=== PATIENT | male | born 1980 | race Caucasian/White ===

== ENCOUNTER 2018-12-18 15:35 | Emergency (ER) | payer MEDICAID, SELFPAY ==
[2018-12-18 15:36] VITALS: BP 132/86; PULSE 66; RESP 20; TEMP 36.4; O2SAT 98; BMI 25.7
[2018-12-18] MEDS: HYDROcodone Bitartrate/Apap 5/325 Tablet PO (16:10)
[2018-12-18] MEDS: Ondansetron ODT 4 MG Tablet PO (16:11)
[2018-12-18] MEDS: morphine 10 MG/ML Syringe IM (16:11)
--- NOTE | 2018-12-18 16:11 | ED.DCSUM_ITS ---
History of Present Illness Chief Complaint: Lower Extremity Injury Informant: Patient Occurred: Today Mechanism/Context: Injury, Puncture Wound Onset: Today Context: Sudden Onset Timing: Continuous Quality of Pain: Sharp Location: Right foot Current Severity: Severe Maximum Severity: Severe Worsened by: Movement and palpation Relieved by: Nothing Associated Symptoms: Negative for: Parasthesia, Weakness, Loss of Funtion Narrative: 38-year-old male presents with injury to his right foot. Patient dropped a log splitter on his right foot. He was wearing a boot. He denies any other injuries. He is not on blood thinners. He is not a diabetic. His last tetanus was 4 years ago. He has a history of multiple broken toes in this foot about 6 months ago. No surgery was performed at that time. Tetanus Immunization: <5 years Prior similar symptoms: No Recent Illness/Hospitalization: No Past Medical History - Allergies and Home Meds Allergies/Adverse Reactions: Allergies amoxicillin Allergy (Verified 12/18/18 15:36) Hives Penicillins [PCN] Allergy (Verified 12/18/18 15:36) Hives Primary Care Physician: Gary Rodarte DPM [STAFF PHYSICIAN] - 3-5 Days Care Physician,No Primary [Primary Care Provider] - Prior records reviewed: Yes Past Medical History: None Surgical History: no surgical history Smoking Status: Current every day smoker Review of Systems All systems negative except as indicated Musculoskeletal: Reports: Swelling, Extremity Pain Skin: Reports: Wounds Physical Exam Vital Signs/Narrative: Vital Signs Temp Pulse Resp BP Pulse Ox 12/18/18 15:36 97.5 F L 66 20 H 132/86 H 98 - Extremity Exam Right Knee: Negative for: Abrasion, Contusion, Deformity, Edema, Hematoma, Limited ROM, - Left Knee: Negative for: Abrasion, Contusion, Deformity, Edema, Hematoma, Limited ROM, - Right Tib fib: Negative for: Abrasion, Contusion, Deformity, Edema, Hematoma, Limited ROM, - Left Tib Fib: Negative for: Abrasion, Contusion, Deformity, Edema, Hematoma, Limited ROM, - Right Ankle: Negative for: Abrasion, Contusion, Deformity, Edema, Hematoma, Limited ROM, - Left Ankle: Negative for: Abrasion, Contusion, Deformity, Edema, Hematoma, Limited ROM, - Right Foot: Abrasion, Contusion, Edema, - - Patient has a puncture wound on his right foot between his fourth and fifth toes as well as between his third and fourth toes. He has bony tenderness and swelling of his fourth and fifth toes and just proximal to both of these of his fourth and fifth metatarsals but the skin overlying his metatarsals is intact. He is able to fully move all 5 toes. Capillary refill and sensation of all 5 toes is normal. DP and PT pulses normal. No other bony tenderness of the foot is noted. There is no bony tenderness of the ankle.. Negative for: Deformity, Hematoma, Limited ROM Left Foot: Negative for: Abrasion, Contusion, Deformity, Edema, Hematoma, Limited ROM, - Right Toe: Abrasion, Contusion, Edema. Negative for: Deformity, Hematoma, Limited ROM Left Toe: Negative for: Abrasion, Contusion, Deformity, Edema, Hematoma, Limited ROM, - Diagnostic/Tx/Re-eval - Medical Decision Making Patient's tetanus is already up-to-date. Patient was given an intramuscular injection of morphine for pain. X-ray demonstrated acute fractures of the fifth distal phalanx, distal aspect of the fourth proximal phalanx, fourth metatarsal head, third metatarsal neck, base of the third distal phalanx, midportion of the second distal phalanx, distal lateral aspect of the first proximal phalanx, lateral base of the fourth distal phalanx, base of the second middle phalanx, fifth proximal phalanx fracture appears to be remote. Discussed with podiatry to arrange for close outpatient follow-up. Patient was placed in a posterior splint after 2 sutures were placed at the base of the fourth toe on the plantar aspect. See procedure note. Patient will be discharg ed home with prescriptions for Keflex and Percocet. Advised on rest ice and elevation. Discussed signs of infection to monitor for and proper use of splint. He declines crutches in the emergency department because he has these at home. He was discharged The following acute fractures are noted: Fifth distal phalanx Distal aspect of fourth proximal phalanx Fourth metatarsal head Third metatarsal neck Base of the third distal phalanx Midportion of the second distal phalanx Distal lateral aspect of the first proximal phalanx Lateral base of the fourth distal phalanx Base of the second middle phalanx A fracture of the fifth proximal phalanx is noted which appears to be remote. Diffuse soft tissue swelling. No joint dislocations are seen. Impressions Foot X-Ray 12/18/18 16:12 IMPRESSION: Multiple acute fractures as described above. Electronically Signed: Ahmet Agudelo MD at 16:36 EDT Tel , Service support , 12/18/18 16:12 Foot min 3 Views [RAD] Stat ED Disposition - Plan for ED Patient: Disposition: Home or Assisted Living Diagnosis: Open toe fracture, Metatarsal bone fracture Instructions: CRUSH INJURY, Foot/Toe, FRACTURE, Foot Prescriptions: Cephalexin [Keflex] 500 mg PO Q6 #40 cap Prescription Printed Hydrocodone Bitart/Apap 5-325 [[place] 5MG-325MG] 1 tab PO Q4H PRN PRN 2 Days #10 tab PRN Reason: Pain Prescription Printed Referrals: Gary Rodarte DPM [STAFF PHYSICIAN] - 3-5 Days Care Physician,No Primary [Primary Care Provider] -
--- NOTE | 2018-12-18 16:12 | RAD_ITS ---
STUDY: X-RAY - RIGHT FOOT CLINICAL: Male, 38 years old. PAIN, BRUISING AND SWELLING TO 2-5TH METATARSALS S/P DROPPING 1500 POUND LOG SPLITTER ON FOOT TECHNIQUE: 3 view(s) of the foot. COMPARISON: None. FINDINGS: The following acute fractures are noted: Fifth distal phalanx Distal aspect of fourth proximal phalanx Fourth metatarsal head Third metatarsal neck Base of the third distal phalanx Midportion of the second distal phalanx Distal lateral aspect of the first proximal phalanx Lateral base of the fourth distal phalanx Base of the second middle phalanx A fracture of the fifth proximal phalanx is noted which appears to be remote. Diffuse soft tissue swelling. No joint dislocations are seen. RAD/Foot min 3 Views IMPRESSION: Multiple acute fractures as described above. Electronically Signed: Ahmet Agudelo MD at 16:36 EDT Tel , Service support ,
[2018-12-18 16:14] VITALS: BP 140/94; PULSE 76; RESP 16; O2SAT 99
--- NOTE | 2018-12-18 17:06 | ED.VISSUMM ---
- ER Visit Summary Date of Service: 12/18/18 Chief Complaint: [Injury to right foot] History of Present Illness: The patient is a 38 M [to the emergency department with an injury to his right foot when he dropped a log splitter onto his foot. Patient was wearing boots at the time. Patient is up-to-date on tetanus. Patient thinks the splitter weighed about 1500 pounds. Planes of severe pain. No medical history otherwise. Has had prior fracture to the small toe that foot.] Physical Examination: [Right foot-patient has diffuse soft tissue swelling and erythema to the distal portion of the foot with tenderness over the third and fourth MTP joints. Patient has diffuse tenderness to all toes. No obvious deformities noted. Patient does have a laceration and measures about 1.5 cm to the plantar aspect of the fourth toe proximal phalanx. Neurovascular intact.] Test Results: [X-rays of the right foot obtained showed multiple fractures involving all toes. Patient also had fractures of the third metatarsal neck and fourth metatarsal head.] Emergency Department Course and Treatment: [Laceration repair-performed by physician assistant clinical director. See his note. Patient will be placed in a posterior splint. Patient will be started on Keflex and given a prescription for [place] for pain area patient did receive morphine in the department.] Treatment Plan: [Follow-up with podiatry. I spoke with Dr. Rodarte who will see patient in the office.] Patient will be given crutches. He is to be nonweightbearing. Disposition: [Discharged home stable condition] Impression: [Injury right foot Multiple fractures right foot] This note was generated with [employer] dictation software. It may contain incorrect words, spelling, and punctuation that were not noted in review of the chart prior to signing ED Disposition - Plan for ED Patient: Referrals: Care Physician,No Primary [Primary Care Provider] -
--- NOTE | 2018-12-18 17:09 | ED.DEP ---
ED Disposition - Plan for ED Patient: Instructions: CRUSH INJURY, Foot/Toe, FRACTURE, Foot Prescriptions: Cephalexin [Keflex] 500 mg PO Q6 #40 cap Prescription Printed Hydrocodone Bitart/Apap 5-325 [[place] 5MG-325MG] 1 tab PO Q4H PRN PRN 2 Days #10 tab PRN Reason: Pain Prescription Printed Referrals: Care Physician,No Primary [Primary Care Provider] - Gary Rodarte DPM [STAFF PHYSICIAN] - 3-5 Days
--- NOTE | 2018-12-18 18:00 | ED.DEP ---
ED Disposition - Plan for ED Patient: Disposition: Home or Assisted Living Diagnosis: Open toe fracture, Metatarsal bone fracture Instructions: CRUSH INJURY, Foot/Toe, FRACTURE, Foot Prescriptions: Cephalexin [Keflex] 500 mg PO Q6 #40 cap Prescription Printed Hydrocodone Bitart/Apap 5-325 [[place] 5MG-325MG] 1 tab PO Q4H PRN PRN 2 Days #10 tab PRN Reason: Pain Prescription Printed Ondansetron [Zofran Odt] 4 mg PO Q8H PRN PRN #10 tab PRN Reason: Nausea Prescription Printed Referrals: Gary Rodarte DPM [STAFF PHYSICIAN] - 3-5 Days Care Physician,No Primary [Primary Care Provider] -
[2018-12-18 18:03] VITALS: BP 126/74; PULSE 62; RESP 15; O2SAT 98
== END 2018-12-18 18:06 | disposition home or self-care (01) ==
PROVIDERS: Emergency Provider Physician Assistant Medical
DX: S92.301A Fracture of unspecified metatarsal bone(s), right foot, initial encounter for closed fracture (principal); F17.200 Nicotine dependence, unspecified, uncomplicated; Z88.0 Allergy status to penicillin; W20.8XXA Other cause of strike by thrown, projected or falling object, initial encounter; Y93.9 Activity, unspecified; Y92.9 Unspecified place or not applicable; Y99.9 Unspecified external cause status
CPT/HCPCS: 73630; 99283